=== PATIENT | male | born 1990 | race African-American/Black ===

== ENCOUNTER 2016-12-04 01:49 | Emergency (ER) | payer SELFPAY ==
[~2016-12-04 01:49] MED LIST: NO MEDICATIONS
== END 2016-12-04 02:07 | disposition home or self-care (01) ==
LOC: SED 01:49
DX: L03.114 Cellulitis of left upper limb (principal); R03.0 Elevated blood-pressure reading, without diagnosis of hypertension
CPT/HCPCS: 99282

== ENCOUNTER 2017-01-29 02:02 | Emergency (ER) | payer SELFPAY ==
--- NOTE | ~2017-01-29 | CR282 ---
[facility]. [facility] A Service of [facility] & [facility] RADIOLOGY TEXT RESULTS PATIENT: DANNIELLE SAENZ LOCATION: SED : 88 UNIT #: [id number] AGE: [address]: Yair Peoples MD SEX: M ORDER DR: [id number] [place] [id number] E MR#: [id number] Acc #: [id number] NAME: DANNIELLE SAENZ : 1990 SEX: M STUDY DATE/TIME: 01/29/2017 2:23 UNIT: SED ROOM: STUDY DESCRIPTION: CR Wrist Min 3 View Rt Attending Physician: Yair Peoples M.D. Ordering Physician: Yair Peoples M.D. Primary Care Physician: Primary Care Physician No MEDICAL IMAGING REPORT This report is preliminary unless electronic signature is present. EXAM Right wrist series, 01/29/2017 HISTORY 26-year-old male in the ED with wrist pain after injury. Fell on outstretched hand 1 week ago. TECHNIQUE Three-view right wrist series. FINDINGS The examination is negative. No fracture, dislocation or other osseous abnormality is demonstrated. IMPRESSION Negative right wrist series. Dictated by... Avtar Florence M.D. THIS IS AN ELECTRONICALLY VERIFIED REPORT Avtar Florence M.D. at 01/29/2017 6:06 AM DELIA/kylie TD: 01/29/2017 04:05 JOB #: [id number] MEDICAL IMAGING REPORT Page 1 of 1
== END 2017-01-29 03:19 | disposition home or self-care (01) ==
LOC: SED 02:02
DX: S63.501A Unspecified sprain of right wrist, initial encounter (principal); X58.XXXA Exposure to other specified factors, initial encounter; Y92.9 Unspecified place or not applicable
CPT/HCPCS: 29125; 73110; 99283